=== PATIENT | male | born 1970 | race Caucasian/White ===

== ENCOUNTER → 2017-07-11 | Day surgery (SDC) | payer BC ==
[~2017-07-11] MED LIST: BALANCED SALT SOLN OPHT IRRIG 15 ML BTL ONE; DEXAMETHASONE SOD PHOS 4 MG/ML VIAL ONE; EPINEPHrine HCL (1:1000) 1 MG/ML VIAL ONE; IBUPROFEN 200 MG TAB ONE; MIDAZOLAM HCL 2 MG/2 ML VIAL ONE; MOXIFLOXACIN 0.5% OPHT SOLN 3 ML BTL ONE; ONDANSETRON HCL 4 MG/2 ML VIAL IV PUSH ONE; PHENYLEPHRINE HCL 10% OPTH SOLN 5 ML BTL ONE; PROPOFOL 200 MG/20 ML AMP IV ONE; SODIUM CHLORIDE 0.9% INJ 10 ML ONE; TETRACAINE 0.5% OPTH SOLN 15 ML BTL ONE; TOBRAMYCIN/DEXAMETHASONE OPTH OINT 3.5 GM TUBE ONE; ceFAZolin INJ 1,000 MG VIAL ONE; prednisoLONE ACETATE 1% OPHT SUSP 5 ML BTL ONE
--- NOTE | 2017-07-14 08:17 | MP ---
cc: TANYA BHAT MD DATE OF SURGERY 07/13/2017 PREOPERATIVE DIAGNOSIS Large retinal detachment, multiple retinal breaks left eye. POSTOPERATIVE DIAGNOSIS Large retinal detachment, multiple retinal breaks left eye. PROCEDURE Pars plana vitrectomy retinal detachment repair, endolaser, air-fluid exchange, insertion of 18% SF6 gas left eye. COMPLICATIONS None BLOOD LOSS Less than [address] Jordan, general INDICATIONS FOR PROCEDURE This is a delightful patient with significant peripheral vision loss and found to have a retinal detachment with multiple retinal breaks. The patient elected for surgical correction understanding the risks, benefits, and alternatives. PROCEDURE NOTE After informed consent was obtained, the patient brought to the operating room, general anesthesia was established. The left eye was prepped and draped in a sterile fashion with Betadine in the conjunctival fornix. A three port pars plana vitrectomy was established with a self-retaining infusion cannula. Core vitreous was evacuated and peripheral vitreous traction was relieved with careful vitrectomy and scleral depression. Multiple retinal breaks were identified and treated with endolaser. After PFO was instilled and retina reattached, endolaser was continued 360 degrees in the far periphery. Air-fluid exchange was carried out and the retina remained nicely attached. 18% SF6 gas was instilled. Trocars were removed and the sclerotomies closed. Subconjunctival injection of Ancef and dexamethasone were given. The eye was patched with TobraDex ointment. The patient brought to the recovery room in stable condition to continue followup with [facility] for his postoperative care. MD RICARDA Ram/DEREK /5:35 PM /8:10 AM
== END | disposition home or self-care (01) ==
LOC: ESDC 11:20
PROVIDERS: ATTEND Ophthalmology
DX: H33.022 Retinal detachment with multiple breaks, left eye (principal)
CPT/HCPCS: 00145; 67108; J0171; J0690; J1100; J2250; J2405; J3010